=== PATIENT | female | born 1980 | race African-American/Black ===

== ENCOUNTER 2020-09-09 18:06 | Inpatient (IN) | payer MEDICAID ==
[~2020-09-09] VITALS: Ht 165.1 cm; Wt 71.7 kg
[2020-09-09] MEDS ORDERED: CARBOPROST TROMETHAMINE 250 MCG/ML AMPUL IM PRN (19:00)
[2020-09-09] MEDS ORDERED: BUTORPHANOL TARTRATE 2 MG/ML VIAL IV PRN (19:00)
[2020-09-09] MEDS ORDERED: LABETALOL HCL 5MG/ML VIAL 20ML IV PRN ×3 (19:00)
[2020-09-09] MEDS ORDERED: DEXT 5%/LR + PITOCIN 20UNITS/L 1,000 ML IV SCH (19:00)
[2020-09-09] MEDS ORDERED: METHYLERGONOVINE MALEATE 0.2 MG/ML IM PRN (19:00)
[2020-09-09] MEDS ORDERED: NALOXONE HCL 0.4 MG/ML 1ML VIAL IM PRN (19:00)
[2020-09-09] MEDS ORDERED: MISOPROSTOL 200MCG TABLET VG SCH (20:00)
[2020-09-09] MEDS ORDERED: LIDOCAINE HCL 1% 20ML VIAL (Pyxis) INJ INFIL SCH (20:00)
[2020-09-09] MEDS ORDERED: AMPICILLIN 2,000 MG in SODIUM CHLORIDE 0.9% 100 ML IV SCH (20:00)
[2020-09-09] MEDS: LACTATED RINGERS 1,000 ML IV SCH (20:00)
[2020-09-09 20:33] LABS: BASOPHILS % 0.4 % (0.0-2.0); EOSINOPHILS % 0.1 % (0.0-5.0); HEMATOCRIT. 36.1 % (36.0-48.0); HEMOGLOBIN. 12.6 g/dL (12.0-16.0); LYMPHOCYTES % 19.2 % (20.0-50.0); MEAN CORPUSCULAR VOLUME 86.3 fL (81.0-99.0); MONOCYTES % 6.9 % (2.0-8.0); NEUTROPHILS % 73.4 % (40.0-76.0); PLATELET 201 x1000/uL (130-400); RED BLOOD CELL COUNT 4.19 mill/uL (4.2-5.4); RED CELL DISTRIBUTION WIDTH 14.1 % (11.6-14.6)
[2020-09-09] MEDS: MISOPROSTOL 100MCG TABLET VG PRN ×2 (20:36→23:54)
[2020-09-09 20:39] LABS: CLARITY URINE CLEAR (CLEAR); COLOR URINE YELLOW (YELLOW); KETONES URINE 3+ (NEGATIVE); LEUKOCYTE ESTERASE URINE TRACE (NEGATIVE); NITRITE URINE NEGATIVE (NEGATIVE); OCCULT BLOOD URINE NEGATIVE (NEGATIVE); PH URINE 6.5 (4.5-8.0); PROTEIN URINE TRACE (NEGATIVE); SPECIFIC GRAVITY URINE 1.017 (1.005-1.030)
[2020-09-09 20:40] LABS: CHLORIDE 105 mEq/L (98-107)
[2020-09-09 20:44] LABS: D-DIMER 1.46 mg/L FEU (<0.50); INR 0.9; PARTIAL THROMBOPLASTIN TIME 26.8 sec (23.4-31.0); PROTHROMBIN TIME 9.9 sec (9.6-11.0)
[2020-09-09 20:59] LABS: *AMPHETAMINES SCREEN URINE NEGATIVE (NEGATIVE); *BARBITURATES SCREEN URINE NEGATIVE (NEGATIVE); *BENZODIAZEPINES SCREEN URINE NEGATIVE (NEGATIVE); CANNABINOID URINE SCREEN NEGATIVE (NEGATIVE); METHADONE URINE SCREEN NEGATIVE (NEGATIVE); OPIATES URINE SCREEN NEGATIVE (NEGATIVE); PHENCYCLIDINE URINE SCREEN NEGATIVE (NEGATIVE)
[2020-09-09 21:00] LABS: *COCAINE SCREEN URINE NEGATIVE (NEGATIVE)
[2020-09-09 21:10] LABS: HEPATITIS B SURFACE ANTIGEN NEGATIVE
[2020-09-09] MEDS ORDERED: PREN-176 MT (22:55)
[2020-09-09] MEDS ORDERED: DEXT 5%/LACTATED RINGERS 300 ML IV ONE (23:45)
[2020-09-10] MEDS: POTASSIUM CHLORIDE 20MEQ TABLET SR PO SCH ×2 (00:02→06:09)
[2020-09-10] MEDS ORDERED: MAGNESIUM 4 G PREMIX 100 ML IV SCH (03:00)
[2020-09-10] MEDS: MAGNESIUM 20 G PREMIX (L & D) 500 ML IV SCH ×2 (03:35→16:37)
[2020-09-10 05:31] LABS: BASOPHILS % 0.4 % (0.0-2.0); EOSINOPHILS % 0.1 % (0.0-5.0); HEMATOCRIT. 33.1 % (36.0-48.0); HEMOGLOBIN. 11.6 g/dL (12.0-16.0); LYMPHOCYTES % 18.6 % (20.0-50.0); MEAN CORPUSCULAR VOLUME 85.8 fL (81.0-99.0); MONOCYTES % 7.3 % (2.0-8.0); NEUTROPHILS % 73.6 % (40.0-76.0); PLATELET 186 x1000/uL (130-400); RED BLOOD CELL COUNT 3.86 mill/uL (4.2-5.4); RED CELL DISTRIBUTION WIDTH 13.8 % (11.6-14.6)
[2020-09-10] MEDS: AMPICILLIN 1,000 MG in SODIUM CHLORIDE 0.9% 50 ML IV SCH ×3 (06:07→20:37)
[2020-09-10] MEDS: DEXT 5%/LACTATED RINGERS 1,000 ML IV SCH (06:59)
[2020-09-10] MEDS ORDERED: METOCLOPRAMIDE HCL 10MG/2ML VIAL IV PRN (09:00)
[2020-09-10] MEDS ORDERED: ROPIVACAINE HCL/PF EPIDURAL 200 ML EP SCH (09:00)
[2020-09-10] MEDS ORDERED: DIPHENHYDRAMINE 50MG/ML VIAL IV PRN (09:00)
[2020-09-10] MEDS ORDERED: ONDANSETRON HCL 4MG/2ML INJ IV PRN (09:00)
[2020-09-10] MEDS ORDERED: LABETALOL HCL 5MG/ML VIAL 20ML IV PRN ×5 (09:30→20:15)
[2020-09-10] MEDS: LACTATED RINGERS 1,000 ML IV SCH (20:43)
[2020-09-10] MEDS ORDERED: ROPIVACAINE HCL/PF EPIDURAL 200 ML EPI ONE (21:59)
[2020-09-11] VITALS (7 sets, daily range): BP systolic 102–153; BP diastolic 63–93
[2020-09-11] MEDS ORDERED: IBUPROFEN 400MG TABLET PO PRN (02:15)
[2020-09-11] MEDS ORDERED: BENZOCAINE/LANOLIN/ALOE VERA SPRAY TOP PRN (02:15)
[2020-09-11] MEDS ORDERED: RHO(D) IMMUNE GLOBULIN 300 MCG/SYR IM PRN (02:15)
[2020-09-11] MEDS: DEXT 5%/LR + PITOCIN 20UNITS/L 1,000 ML IV SCH ×2 (02:48→05:46)
[2020-09-11] MEDS: MAGNESIUM 20 G PREMIX (L & D) 500 ML IV SCH (03:32)
[2020-09-11] MEDS ORDERED: MISOPROSTOL 200MCG TABLET PO ONE (05:15)
[2020-09-11 05:31] LABS: HEMATOCRIT. 30.7 % (36.0-48.0); HEMOGLOBIN. 10.5 g/dL (12.0-16.0); MEAN CORPUSCULAR HEMOGLOBIN 29.9 pg (28.0-32.0); MEAN CORPUSCULAR VOLUME 87.5 fL (81.0-99.0); MEAN PLATELET VOLUME 8.8 fl (7.4-10.4); PLATELET 291 x1000/uL (130-400); RED BLOOD CELL COUNT 3.51 mill/uL (4.2-5.4); RED CELL DISTRIBUTION WIDTH 14.4 % (11.6-14.6)
[2020-09-11 07:14] LABS: PLATELET ESTIMATE NORMAL
[2020-09-11 09:30] LABS: HEMATOCRIT 26.8 % (36.0-48.0); HEMOGLOBIN 9.1 g/dL (12.0-16.0); MEAN CORPUSCULAR HEMOGLOBIN 29.8 pg (28.0-32.0); MEAN CORPUSCULAR VOLUME 87.9 fL (81.0-99.0); PLATELET 239 x1000/uL (130-400); RED BLOOD CELL COUNT 3.05 mill/uL (4.2-5.4); RED CELL DISTRIBUTION WIDTH 14.4 % (11.6-14.6)
[2020-09-11] MEDS: LABETALOL HCL 200MG TABLET PO SCH ×2 (10:11→21:37)
[2020-09-11] MEDS: DEXT 5%/LACTATED RINGERS 1,000 ML IV SCH (15:02)
[2020-09-12 04:00] VITALS: BP 129/58
[2020-09-12 06:20] LABS: BASOPHILS % 0.2 % (0.0-2.0); LYMPHOCYTES % 13.1 % (20.0-50.0); MEAN CORPUSCULAR HEMOGLOBIN 29.8 pg (28.0-32.0); MEAN CORPUSCULAR VOLUME 87.4 fL (81.0-99.0); MEAN PLATELET VOLUME 9.2 fl (7.4-10.4); MONOCYTES % 5.7 % (2.0-8.0); PLATELET 191 x1000/uL (130-400); RED CELL DISTRIBUTION WIDTH 14.3 % (11.6-14.6)
[2020-09-12 06:24] LABS: HEMATOCRIT. 18.3 % (36.0-48.0); HEMOGLOBIN. 6.3 g/dL (12.0-16.0)
[2020-09-12 08:00] VITALS: BP 126/78
[2020-09-12] MEDS: IBUPROFEN 800MG TABLET PO PRN ×2 (08:01→20:54)
[2020-09-12] MEDS: PRENATAL VIT/FE FUMARATE/FA TABLET PO SCH (08:01)
[2020-09-12] MEDS: FERROUS SULFATE 325MG TABLET PO SCH ×3 (08:01→17:34)
[2020-09-12] MEDS: LABETALOL HCL 200MG TABLET PO SCH ×2 (08:38→20:53)
[2020-09-12 16:00] VITALS: BP 117/70
[2020-09-12 20:00] VITALS: BP 124/65
[2020-09-13 04:00] VITALS: BP 137/81
[2020-09-13 07:30] VITALS: BP 136/85
[2020-09-13] MEDS: FERROUS SULFATE 325MG TABLET PO SCH ×3 (09:11→18:00)
[2020-09-13] MEDS: PRENATAL VIT/FE FUMARATE/FA TABLET PO SCH (09:11)
[2020-09-13] MEDS: IBUPROFEN 800MG TABLET PO PRN ×2 (09:12→18:00)
[2020-09-13] MEDS: LABETALOL HCL 200MG TABLET PO SCH ×2 (09:12→22:17)
[2020-09-13 09:16] LABS: MEAN CORPUSCULAR VOLUME 88.2 fL (81.0-99.0); PLATELET 163 x1000/uL (130-400); RED BLOOD CELL COUNT 1.81 mill/uL (4.2-5.4); RED CELL DISTRIBUTION WIDTH 14.2 % (11.6-14.6)
[2020-09-13 09:28] LABS: HEMOGLOBIN 5.4 g/dL (12.0-16.0)
[2020-09-13] MEDS ORDERED: LACTATED RINGERS 1,000 ML IV SCH ×3 (10:45→13:00)
[2020-09-13] MEDS: LACTATED RINGERS 1,000 ML IV SCH ×2 (15:00→22:17)
[2020-09-13 15:30] VITALS: BP 141/73
[2020-09-13 20:00] VITALS: BP 144/70
[2020-09-14 04:00] VITALS: BP 147/73
[2020-09-14] MEDS ORDERED: LABE200T28 PO (04:23)
[2020-09-14] MEDS: IBUPROFEN 800MG TABLET PO PRN (04:23)
[2020-09-14] MEDS ORDERED: FERR325T23 PO (04:23)
[2020-09-14] MEDS ORDERED: IBUP-2030 PO (04:23)
[2020-09-14 07:30] VITALS: BP 155/64
[2020-09-14] MEDS: PRENATAL VIT/FE FUMARATE/FA TABLET PO SCH (09:00)
[2020-09-14] MEDS: LABETALOL HCL 200MG TABLET PO SCH (09:01)
[2020-09-14] MEDS: FERROUS SULFATE 325MG TABLET PO SCH ×2 (09:01→12:30)
== END 2020-09-14 13:35 | disposition home or self-care (01) | DRG 560 ==
LOC: 8 EST LDRP 18:06 → OBSVTOIN 18:06 → 8EST 09-11 07:41
PROVIDERS: ADMIT Obstetrics & Gynecology; ATTEND Obstetrics & Gynecology
PROC: 10D07Z6 Extraction of Products of Conception, Vacuum, Via Natural or Artificial Opening (ICD-10-PCS; principal; 2020-09-11)
PROC: 3E0R3BZ Introduction of Anesthetic Agent into Spinal Canal, Percutaneous Approach (ICD-10-PCS; 2020-09-11)
PROC: 00HU33Z Insertion of Infusion Device into Spinal Canal, Percutaneous Approach (ICD-10-PCS; 2020-09-11)
DX: O14.94 Unspecified pre-eclampsia, complicating childbirth (principal); O13.4 Gestational [pregnancy-induced] hypertension without significant proteinuria, complicating childbirth; D62 Acute posthemorrhagic anemia; O70.0 First degree perineal laceration during delivery; Z3A.49 Greater than 42 weeks gestation of pregnancy; Z37.0 Single live birth; O90.81 Anemia of the puerperium; Z3A.39 39 weeks gestation of pregnancy; Z82.3 Family history of stroke; Z82.49 Family history of ischemic heart disease and other diseases of the circulatory system
CPT/HCPCS: 36415; 80053; 80305; 81003; 83735; 84550; 85025; 85027; 85379; 85384; 86592; 86703; 86762; 86850; 86900; 86920; 87340; 93970; J0290; J0595; J2590; J2795; J3475; J3490; J7050; J7120; J7121; A4315

== ENCOUNTER 2020-12-29 13:36 | Inpatient (IN) | payer MEDICAID, OTHER ==
[~2020-12-29] VITALS: Ht 165.1 cm; Wt 59.0 kg
[~2020-12-29 13:36] MED LIST: FERR325T23 PO; IBUP-2030 PO; LABE200T9 PO; PREN-176 MT
[2020-12-29] MEDS ORDERED: ONDANSETRON 4MG ODT PO STA (13:58)
[2020-12-29] MEDS ORDERED: MAGNESIUM/ALUMINUM HYDROXIDE/SIMETHICONE 30ML UDC PO STA (13:58)
[2020-12-29 15:24] LABS: PROTHROMBIN TIME 10.8 sec (9.6-11.0)
[2020-12-29 15:25] LABS: CHLORIDE 106 mEq/L (98-107)
[2020-12-29 15:27] LABS: BASOPHILS % 0.5 % (0.0-2.0); EOSINOPHILS % 0.4 % (0.0-5.0); HEMOGLOBIN. 13.2 g/dL (12.0-16.0); LYMPHOCYTES % 16.6 % (20.0-50.0); MEAN CORPUSCULAR HEMOGLOBIN 27.1 pg (28.0-32.0); MEAN CORPUSCULAR VOLUME 82.2 fL (81.0-99.0); MEAN PLATELET VOLUME 8.4 fl (7.4-10.4); MONOCYTES % 5.8 % (2.0-8.0); NEUTROPHILS % 76.7 % (40.0-76.0); PLATELET 292 x1000/uL (130-400); RED BLOOD CELL COUNT 4.87 mill/uL (4.2-5.4); RED CELL DISTRIBUTION WIDTH 14.8 % (11.6-14.6)
[2020-12-29 15:29] LABS: ETHANOL BLOOD < 10 mg/dL
[2020-12-29 15:40] LABS: HCG SCREEN NEGATIVE
[2020-12-29 17:23] LABS: CLARITY URINE CLEAR (CLEAR); COLOR URINE DARK YELLOW (YELLOW); KETONES URINE TRACE (NEGATIVE); LEUKOCYTE ESTERASE URINE 1+ (NEGATIVE); NITRITE URINE POSITIVE (NEGATIVE); OCCULT BLOOD URINE NEGATIVE (NEGATIVE); PROTEIN URINE TRACE (NEGATIVE); SPECIFIC GRAVITY URINE 1.029 (1.005-1.030)
[2020-12-29 18:21] LABS: *AMPHETAMINES SCREEN URINE NEGATIVE (NEGATIVE); *BARBITURATES SCREEN URINE NEGATIVE (NEGATIVE); *COCAINE SCREEN URINE NEGATIVE (NEGATIVE)
[2020-12-29 18:22] LABS: CANNABINOID URINE SCREEN NEGATIVE (NEGATIVE); METHADONE URINE SCREEN NEGATIVE (NEGATIVE); OPIATES URINE SCREEN NEGATIVE (NEGATIVE); PHENCYCLIDINE URINE SCREEN NEGATIVE (NEGATIVE)
[2020-12-29 18:26] LABS: *BENZODIAZEPINES SCREEN URINE NEGATIVE (NEGATIVE)
[2020-12-29] MEDS ORDERED: DEXT 5%/0.9% NACL 1,000 ML IV ONE (18:30)
[2020-12-29 22:00] VITALS: BP 131/76
[2020-12-30] VITALS: BP 131/76
[2020-12-30] MEDS ORDERED: ONDANSETRON HCL 4MG/2ML INJ IV PRN
[2020-12-30] MEDS ORDERED: MORPHINE SULFATE 2 MG/ML CPJ (NOT FOR IM USE) IV PRN
[2020-12-30] MEDS ORDERED: NIFE20CA PO (00:14)
[2020-12-30] MEDS ORDERED: SUCR1TAB PO (00:14)
[2020-12-30] MEDS ORDERED: OMEP10CA5 PO (00:14)
[2020-12-30] MEDS ORDERED: DEXT 5% WATER + KCL 20MEQ/L 1,000 ML IV SCH (01:00)
[2020-12-30 04:00] VITALS: BP 116/65
[2020-12-30] MEDS: PIPERACILLIN/TAZOBACTAM 3.375 G in DEXT 5% WATER 100 ML IV SCH ×3 (04:17→19:43)
[2020-12-30] MEDS: DEXT 5%/0.45% NACL KCL 20MEQ/L 1,000 ML IV SCH (04:17)
[2020-12-30 05:36] LABS: EOSINOPHILS % 0.8 % (0.0-5.0); HEMATOCRIT. 38.3 % (36.0-48.0); HEMOGLOBIN. 12.8 g/dL (12.0-16.0); LYMPHOCYTES % 43.9 % (20.0-50.0); MEAN CORPUSCULAR HEMOGLOBIN 27.4 pg (28.0-32.0); MEAN CORPUSCULAR VOLUME 82.1 fL (81.0-99.0); MEAN PLATELET VOLUME 8.8 fl (7.4-10.4); MONOCYTES % 5.5 % (2.0-8.0); NEUTROPHILS % 48.8 % (40.0-76.0); PLATELET 288 x1000/uL (130-400); RED BLOOD CELL COUNT 4.67 mill/uL (4.2-5.4); RED CELL DISTRIBUTION WIDTH 14.8 % (11.6-14.6)
[2020-12-30 05:50] LABS: CHLORIDE 107 mEq/L (98-107)
[2020-12-30] MEDS ORDERED: PIPERACILLIN/TAZOBACTAM 3.375 G/VIAL IV SCH (06:00)
[2020-12-30 06:01] LABS: AMYLASE 46 IU/L (25-115)
[2020-12-30 08:00] VITALS: BP 115/85
[2020-12-30] MEDS: PANTOPRAZOLE SODIUM 40 MG/VIAL IV SCH (08:59)
[2020-12-30 12:00] VITALS: BP 143/75
[2020-12-30] MEDS ORDERED: METOCLOPRAMIDE HCL 10MG/2ML VIAL IV NR (14:45)
[2020-12-30] MEDS ORDERED: POTASSIUM CHLORIDE 20MEQ TABLET SR PO NR (14:45)
[2020-12-30 16:00] VITALS: BP 152/92
[2020-12-30] MEDS ORDERED: MIDAZOLAM HCL 5 MG/5 ML VIAL IV PRN (16:52)
[2020-12-30] MEDS ORDERED: FENTANYL CITRATE/PF 50MCG/ML 2ML VIAL IV PRN (16:53)
[2020-12-30] MEDS ORDERED: MIDAZOLAM HCL 5 MG/5 ML VIAL ONE (16:56)
[2020-12-30] MEDS ORDERED: FENTANYL CITRATE/PF 50MCG/ML 2ML VIAL ONE (16:56)
[2020-12-30] MEDS ORDERED: DIAZEPAM 5 MG/ML 2ML CPJ IV PRN (16:56)
[2020-12-30] MEDS ORDERED: DIAZEPAM 5 MG/ML 2ML CPJ ONE (16:57)
[2020-12-30 20:00] VITALS: BP 119/62
[2020-12-31] VITALS: BP 163/89
[2020-12-31] MEDS: PIPERACILLIN/TAZOBACTAM 3.375 G in DEXT 5% WATER 100 ML IV SCH ×3 (00:05→12:08)
[2020-12-31 04:00] VITALS: BP 129/83
[2020-12-31 06:22] LABS: CHLORIDE 107 mEq/L (98-107)
[2020-12-31 06:29] LABS: AMYLASE 39 IU/L (25-115)
[2020-12-31 06:45] LABS: BASOPHILS % 0.8 % (0.0-2.0); EOSINOPHILS % 0.9 % (0.0-5.0); HEMATOCRIT. 37.8 % (36.0-48.0); HEMOGLOBIN. 12.4 g/dL (12.0-16.0); HEPATITIS B SURFACE ANTIGEN NEGATIVE; LYMPHOCYTES % 40.5 % (20.0-50.0); MEAN CORPUSCULAR HEMOGLOBIN 26.9 pg (28.0-32.0); MEAN CORPUSCULAR VOLUME 81.7 fL (81.0-99.0); MONOCYTES % 6.5 % (2.0-8.0); NEUTROPHILS % 51.3 % (40.0-76.0); PLATELET 265 x1000/uL (130-400); RED BLOOD CELL COUNT 4.62 mill/uL (4.2-5.4); RED CELL DISTRIBUTION WIDTH 14.4 % (11.6-14.6)
[2020-12-31 07:15] LABS: HEPATITIS A AB IGM NEGATIVE (NEGATIVE)
[2020-12-31 08:00] VITALS: BP 148/69
[2020-12-31] MEDS: PANTOPRAZOLE SODIUM 40 MG/VIAL IV SCH (09:01)
[2020-12-31] MEDS: DEXT 5%/0.45% NACL KCL 20MEQ/L 1,000 ML IV SCH (10:29)
[2020-12-31] MEDS ORDERED: POTASSIUM CHLORIDE 20MEQ TABLET SR PO NR (11:00)
[2020-12-31 12:00] VITALS: BP 148/76
[2020-12-31] MEDS ORDERED: OMEP20CA14 MT (12:14)
[2020-12-31 14:03] VITALS: BP 148/76
== END 2020-12-31 15:02 | disposition home or self-care (01) | DRG 241 ==
LOC: ER 13:36 → 6EST 19:16 → ENRESERV 20:38
PROVIDERS: ADMIT Internal Medicine; ATTEND Internal Medicine
PROC: 0DB78ZX Excision of Stomach, Pylorus, Via Natural or Artificial Opening Endoscopic, Diagnostic (ICD-10-PCS; principal; 2020-12-30)
DX: K29.70 Gastritis, unspecified, without bleeding (principal); K80.20 Calculus of gallbladder without cholecystitis without obstruction; I10 Essential (primary) hypertension; D64.9 Anemia, unspecified; K21.9 Gastro-esophageal reflux disease without esophagitis; E87.6 Hypokalemia; Z20.822 Contact with and (suspected) exposure to COVID-19; G89.29 Other chronic pain; R74.01 Elevation of levels of liver transaminase levels; E80.6 Other disorders of bilirubin metabolism; D70.9 Neutropenia, unspecified
CPT/HCPCS: 36415; 74181; 76700; 78227; 80053; 80076; 80305; 80320; 81003; 82150; 82248; 83605; 84703; 85025; 86705; 86709; 86803; 87340; 87426; 88305; 88313; 93005; 99285; A9537; C9113; J2250; J2543; J2765; J3010; J7042; J7060; Q0162; G0480